=== PATIENT | female | born 1985 | race Caucasian/White ===

== ENCOUNTER 2021-10-20 11:29 | Emergency (ER) | payer BC ==
[~2021-10-20] VITALS: Ht 157.5 cm; Wt 79.4 kg
--- NOTE | 2021-10-20 11:54 | NUR ---
PT IS IN ROOM #2B. DR LILLY EVALUATED THE PT.
[2021-10-20] MEDS ORDERED: ONDANSETRON HCL 4 MG TABLET ONE (11:57)
[2021-10-20] MEDS ORDERED: ONDANSETRON HCL 4 MG TABLET PO ONE (12:00)
[2021-10-20 12:12] LABS: HEMATOCRIT 34.2 % (31.2-41.9); MEAN CORPUSCULAR HEMOGLOBIN 31.9 uug (24.7-32.8); MEAN CORPUSCULAR VOLUME 92.2 fL (75.5-95.3); PLATELET COUNT (AUTO) 275 K/uL (179-408)
[2021-10-20 12:23] LABS: CARBON DIOXIDE 25 mmol/L (21-32); CHLORIDE 105 mmol/L (98-107); CREATININE 0.9 mg/dL (0.6-1.3); GLUCOSE 115 mg/dL (74-106); POTASSIUM 3.5 mmol/L (3.5-5.1); UREA NITROGEN, BLOOD 9 mg/dL (7-18)
[2021-10-20 12:30] LABS: ALANINE AMINOTRANSFERASE 30 U/L (14-59); ALKALINE PHOSPHATASE 89 U/L (50-136); ASPARTATE AMINOTRANSFERASE 55 U/L (15-37); BILIRUBIN,DIRECT < 0.1 mg/dL (0.0-0.2); BILIRUBIN,TOTAL 0.2 mg/dL (0.2-1.0)
[2021-10-20 12:31] LABS: ACETAMINOPHEN < 10.0 ug/mL (10-30)
[2021-10-20 13:02] LABS: ETHANOL < 3 MG/DL (0-0)
[2021-10-20] MEDS ORDERED: ONDA4TAB11 PO (16:09)
[2021-10-20] MEDS ORDERED: ACETAMINOPHEN ES 500 MG TABLET ONE (17:35)
[2021-10-20] MEDS ORDERED: ACETAMINOPHEN ES 500 MG TABLET PO ONE (17:45)
--- NOTE | 2021-10-20 19:09 | NUR ---
REPORT GIVEN TO [employer] JULIANNE FREED.
--- NOTE | 2021-10-20 20:05 | NUR ---
assumed care of pt, per report pt is a 36-year-old female with history of alcohol and methamphetamine abuse presents for evaluation from a [facility] rehab facility. Patient herself gives history that several days before moving to this facility she was at a different 1 and fell asleep while she was sitting down in the bathroom. She states she hit her head. She also notes that she fell a different time after being asleep because her right leg was asleep and hurt her right knee. Staff from the rehab facility at bedside give different history that patient was without Suboxone for 2 days and had just received it yesterday. She stated that patient had been having episodes of nausea and vomiting and was unsteady on her feet. Patient denies any headache or visual changes. No neck or back pain. She states she feels very tired and wants to sleep. No abdominal pain. No chest pain, shortness of breath, or palpitations. pt found pacing in her room, pt has no recollection of events [employer]. RN informed pt of events, which pt quickly forgot and needed to be reminded of several times. pt sts she is "anxious" and would like to medicated for it, MD aware. vitals assessed and documented. pt redirectable, though needs to be often. RN contacted "Thom" @ [facility], who stated he would arrange transportation for pt, Thom brambila expected ETA to be within 30 mins (by 20:30) pt updated as to plan of care. pt attempted to leave facility and rehab in general, RN able to redirect pt with [employer]. pt is awaiting p/u with NAD noted. RN will CTM
--- NOTE | 2021-10-20 20:37 | NUR ---
Patient discharged to in stable condition with staff member from [facility] staff member. Written and verbal after care instructions given. Patient verbalizes understanding of instructions. Stressed follow up or return to ER for worsening s/s.
[2021-10-20 20:38] VITALS: BP 155/95
== END 2021-10-20 20:38 | disposition home or self-care (01) ==
LOC: ER 11:29
DX: S09.90XA Unspecified injury of head, initial encounter (principal); W18.30XA Fall on same level, unspecified, initial encounter; Y92.89 Other specified places as the place of occurrence of the external cause; F19.10 Other psychoactive substance abuse, uncomplicated; R11.2 Nausea with vomiting, unspecified; M25.561 Pain in right knee
CPT/HCPCS: 36415; 70450; 85025; A4663; A9150; G0480; Q0162